=== PATIENT | female | born 1975 | race Caucasian/White ===

== ENCOUNTER 2018-01-11 14:59 | Emergency (ER) | payer MEDICAID ==
[~2018-01-11] VITALS: Ht 165.1 cm; Wt 122.6 kg
[2018-01-11] MEDS ORDERED: ONDANSETRON ODT 4 MG PO ONE (16:30)
[2018-01-11] MEDS ORDERED: ALBUTEROL/IPRATROPIUM 2.5MG/0.5MG, 3 ML NPPB ONE ×2 (16:30→17:30)
[2018-01-11] MEDS ORDERED: ALBUTEROL/IPRATROPIUM 2.5MG/0.5MG, 3 ML ONE (16:42)
[2018-01-11] MEDS ORDERED: ONDANSETRON ODT 4 MG ONE (16:43)
[2018-01-11] MEDS ORDERED: SERT100T5 PO (16:53)
[2018-01-11] MEDS ORDERED: CYCL-259 PO (16:53)
[2018-01-11] MEDS ORDERED: CHOL100011 PO (16:53)
[2018-01-11] MEDS ORDERED: TRAZ100T15 PO (16:53)
[2018-01-11] MEDS ORDERED: METO50TA82 PO (16:53)
[2018-01-11] MEDS ORDERED: CETI10TA18 PO (16:54)
[2018-01-11 16:56] LABS: BASOPHILS # (AUTO) 0.02 x10^3/uL (0-0.1); BASOPHILS % (AUTO) 0 % (0-1); EOSINOPHILS # (AUTO) 0.32 x10^3/uL (0-0.4); EOSINOPHILS % (AUTO) 3 % (1-7); LYMPHOCYTES # (AUTO) 2.17 x10^3/uL (1-3.4); LYMPHOCYTES % (AUTO) 23 % (22-44); MD NO; MEAN CORPUSCULAR HEMOGLOBIN 29.3 pg (27.0-34.8); MEAN CORPUSCULAR HGB CONC 33.5 g/dL (32.4-35.8); MEAN CORPUSCULAR VOLUME 87.5 fL (80-100); MEAN PLATELET VOLUME 7.7 fL (7.4-10.4); MONOCYTES # (AUTO) 0.49 x10^3/uL (0.2-0.8); MONOCYTES % (AUTO) 5 % (2-9); NEUTROPHILS # (AUTO) 6.55 x10^3/uL (1.8-6.8); NEUTROPHILS % (AUTO) 69 % (42-75); PLATELET COUNT 303 x10^3/uL (130-400); RED BLOOD COUNT 5.01 x10^6/uL (3.82-5.3); RED CELL DISTRIBUTION WIDTH 13.8 % (9.6-15.2)
[2018-01-11 17:07] LABS: ALBUMIN 3.1 g/dL (3.4-5.0); ANION GAP 4 mmol/L (5-15); CALCIUM 7.2 mg/dL (8.5-10.1); CHLORIDE 106 mmol/L (98-107)
[2018-01-11 17:10] LABS: ALANINE AMINOTRANSFERASE 25 U/L (12-78); ALKALINE PHOSPHATASE 83 U/L (45-117); BILIRUBIN,TOTAL 0.3 mg/dL (0.2-1.0); CREATININE 0.85 mg/dL (0.55-1.02); TOTAL PROTEIN 7.3 g/dL (6.4-8.2)
[2018-01-11] MEDS ORDERED: ALBUTEROL/IPRATROPIUM 2.5MG/0.5MG, 3 ML NPPB PRN (17:30)
[2018-01-11 18:47] VITALS: BP 156/104
== END 2018-01-11 18:49 | disposition home or self-care (01) ==
LOC: ED 18:19 → MERGE 18:43 → ED 18:49
DX: J20.9 Acute bronchitis, unspecified (principal); R11.2 Nausea with vomiting, unspecified
CPT/HCPCS: 36415; 71046; 80053; 84703; 85025; 94640; 99285; J7512; Q0162; J7620

== ENCOUNTER 2018-12-26 09:50 | Emergency (ER) | payer BC, MEDICAID, OTHER ==
[~2018-12-26] VITALS: Ht 165.1 cm; Wt 127.0 kg
[~2018-12-26 09:50] MED LIST: CETI10TA18 PO; CHOL100011 PO; CYCL-259 PO; METO50TA82 PO; SERT100T32 PO; TRAZ-137 PO
[2018-12-26 09:53] VITALS: BP 177/109
--- NOTE | 2018-12-26 10:17 | NUR ---
BREAK RN: PT HERE FOR SORE THROAT X 1 DAY. NO C/O F/C.
[2018-12-26] MEDS ORDERED: DEXAMETHASONE 4 MG TABLET PO ONE (10:30)
[2018-12-26] MEDS ORDERED: DEXAMETHASONE 4 MG TABLET ONE (10:34)
== END 2018-12-26 10:46 | disposition home or self-care (01) ==
LOC: ED 10:32
DX: J02.0 Streptococcal pharyngitis (principal); I10 Essential (primary) hypertension; G89.29 Other chronic pain; J45.909 Unspecified asthma, uncomplicated
CPT/HCPCS: 99283

== ENCOUNTER 2020-10-27 14:31 | Emergency (ER) | payer MEDICAID, OTHER ==
[~2020-10-27] VITALS: Ht 165.1 cm; Wt 126.9 kg
[~2020-10-27 14:31] MED LIST changes: -TRAZ-137 PO; +TRAZ-175 PO
--- NOTE | 2020-10-27 15:40 | NUR ---
TASK RN: COUGH, CHILLS, SUBJECTIVE FEVER X1 WEEK POSTIVE EXPOSURE AT WORK ROOM AIR 96%, DEMINISHED TO BASES DROPLET PRECAUTIONS PLACED LAB AT BEDSIDE FOR FULL SET OF LABS INCLUDING BLOOD CULTURE X1 COVID SWAB OBTAINED
--- NOTE | 2020-10-27 15:58 | NUR ---
CXR AT BEDSIDE
[2020-10-27 16:02] VITALS: BP 130/89
[2020-10-27 16:03] LABS: BASOPHILS % (AUTO) 1 % (0-1); EOSINOPHILS % (AUTO) 2 % (1-7); LYMPHOCYTES % (AUTO) 31 % (22-44); MEAN CORPUSCULAR HEMOGLOBIN 28.7 pg (27.0-34.8); MEAN CORPUSCULAR HGB CONC 32.8 g/dL (32.4-35.8); MEAN PLATELET VOLUME 7.3 fL (7.4-10.4); MONOCYTES % (AUTO) 12 % (2-9); NEUTROPHILS % (AUTO) 55 % (42-75); PLATELET COUNT 327 x10^3/uL (130-400); RED BLOOD COUNT 4.66 x10^6/uL (3.82-5.3); RED CELL DISTRIBUTION WIDTH 13.1 % (9.6-15.2)
[2020-10-27 16:11] LABS: MD NO
[2020-10-27 16:15] LABS: ALANINE AMINOTRANSFERASE 28 U/L (12-78); ALBUMIN 3.1 g/dL (3.4-5.0); ANION GAP 5 mmol/L (5-15); CHLORIDE 107 mmol/L (98-107); CREATININE 1.07 mg/dL (0.55-1.02)
[2020-10-27 16:22] LABS: ALKALINE PHOSPHATASE 81 U/L (45-117); BILIRUBIN,TOTAL 0.3 mg/dL (0.2-1.0); C-REACTIVE PROTEIN, QUANT 1.48 mg/dL (0.02-0.49); TOTAL PROTEIN 7.6 g/dL (6.4-8.2)
--- NOTE | 2020-10-27 16:49 | NUR ---
CALL LIGHT ANSWERED, PT PROVIDED BSC. PT REQUESTING CRACKERS AND JUICE-PROVIDED. PT UPDATED ON POC. CONTINUE TO AWAIT LACTIC ACID RESULT.
--- NOTE | 2020-10-27 17:10 | NUR ---
ALL RESULTS BACK, PT FOR RECHECK.
== END 2020-10-27 18:20 | disposition home or self-care (01) ==
LOC: ED 18:14
DX: J45.909 Unspecified asthma, uncomplicated (principal); I10 Essential (primary) hypertension
CPT/HCPCS: 36415; 71045; 80053; 82728; 83605; 83615; 85025; 86140; 87040; 87635; 99284

== ENCOUNTER 2021-05-24 19:21 | Emergency (ER) | payer MEDICAID ==
[~2021-05-24] VITALS: Ht 165.1 cm; Wt 137.8 kg
[~2021-05-24 19:21] MED LIST changes: -CYCL-259 PO; +CYCL10TA2 PO
[2021-05-24 19:25] VITALS: BP 158/97
--- NOTE | 2021-05-24 21:19 | NUR ---
PT AMBULATES FROM LOBBY TO ROOM WITH STEADY GAIT.
--- NOTE | 2021-05-24 21:37 | NUR ---
This float RN at bedside to dc pt for primary RN, Javy. Pt verbalized understanding to dc instructions. Ambulatory to checkout c steady gait.
== END 2021-05-24 21:39 | disposition home or self-care (01) ==
LOC: ED 19:51
DX: R11.2 Nausea with vomiting, unspecified (principal); Z20.822 Contact with and (suspected) exposure to COVID-19; B34.9 Viral infection, unspecified; J02.9 Acute pharyngitis, unspecified; R10.9 Unspecified abdominal pain; I10 Essential (primary) hypertension; J45.909 Unspecified asthma, uncomplicated
CPT/HCPCS: 99283; U0003; U0005